=== PATIENT | female | born 1955 | race Caucasian/White ===

== ENCOUNTER 2023-10-15 06:24 | Day surgery (SDC) | payer MEDICARE, SELFPAY ==
[2023-10-11 09:18] VITALS: BMI 32.8
[2023-10-11 09:33] VITALS: BMI 32.8
--- NOTE | 2023-10-14 09:17 | P.CONAN_ITS ---
Documented by User: Dai Sams NP 10/14/23 09:18 HPI - Anesthesia Eval Consult details Narrative: 68yo F for Colonoscopy PMFSH Past Medical History Medical History Diverticulosis Osteoarthritis Hereditary spherocytosis Renal calculi HTN (hypertension) Surgical History Surgical History Hx of hysterectomy Hx of cholecystectomy Hx of splenectomy H/O colonoscopy Social History Social History (Updated 10/11/23 @ 09:18 by Josefa Flood RN) Are you a primary healthcare applications analyst to a significant other at home: No Do you presently have visiting nurse or other home services: No Patient Tobacco Use Status: Never used Tobacco Use of substances other than those prescribed or required for medical reasons: No Have you been hit, kicked, punched, or otherwise hurt by someone within the past year? If so, by whom?: No Are you DNR?: No Advance Directives: No Advance Directives Information Provided: Yes Advance Directives on File: No Eating poorly because of decreased appetite: No Nutrition Risks: No Nutritional Risk Poor oral hygiene: No Meds Allergies Allergy/AdvReac Type Severity Reaction Status Date / Time shellfish derived Allergy Hives Verified 10/15/23 07:19 Home Medications Medication Instructions Recorded Confirmed Last Taken Type Lactobacillus acidophilus and 1 cap PO DAILY 10/11/23 10/11/23 Unknown History rhamnosus 15 billion cell capsule (Probiotic) amlodipine 10 mg tablet 10 mg PO DAILY 10/11/23 10/11/23 10/15/23 History fluticasone propionate 50 1 spray intranasal DAILY PRN Nasal 10/11/23 10/11/23 Unknown History mcg/actuation nasal Congestion spray,suspension lisinopril 30 mg tablet 30 mg PO DAILY 10/11/23 10/11/23 Unknown History meloxicam 15 mg tablet 15 mg PO DAILY PRN Pain 10/11/23 10/11/23 Unknown History Exam Height,Weight and Vital Signs: Height 5 ft 4 in Weight 86.636 kg Assessment and Plan Assessment Anesthesia Assessment: Chart Reviewed Documented by User: Patrick Rod MD 10/15/23 07:21 PMFSH Past Medical History Medical History Diverticulosis Osteoarthritis Hereditary spherocytosis Renal calculi HTN (hypertension) Family History Family history of problems with anesthesia: No Surgical History Surgical History Hx of hysterectomy Hx of cholecystectomy Hx of splenectomy H/O colonoscopy History of Problems with Anesthesia: No Social History Social History (Updated 10/11/23 @ 09:18 by Josefa Flood RN) Are you a primary healthcare applications analyst to a significant other at home: No Do you presently have visiting nurse or other home services: No Patient Tobacco Use Status: Never used Tobacco Use of substances other than those prescribed or required for medical reasons: No Have you been hit, kicked, punched, or otherwise hurt by someone within the past year? If so, by whom?: No Are you DNR?: No Advance Directives: No Advance Directives Information Provided: Yes Advance Directives on File: No Eating poorly because of decreased appetite: No Nutrition Risks: No Nutritional Risk Poor oral hygiene: No Meds Allergies Allergy/AdvReac Type Severity Reaction Status Date / Time shellfish derived Allergy Hives Verified 10/15/23 07:19 Home Medications Medication Instructions Recorded Confirmed Last Taken Type Lactobacillus acidophilus and 1 cap PO DAILY 10/11/23 10/11/23 Unknown History rhamnosus 15 billion cell capsule (Probiotic) amlodipine 10 mg tablet 10 mg PO DAILY 10/11/23 10/11/23 10/15/23 History fluticasone propionate 50 1 spray intranasal DAILY PRN Nasal 10/11/23 10/11/23 Unknown History mcg/actuation nasal Congestion spray,suspension lisinopril 30 mg tablet 30 mg PO DAILY 10/11/23 10/11/23 Unknown History meloxicam 15 mg tablet 15 mg PO DAILY PRN Pain 10/11/23 10/11/23 Unknown History Exam Airway Mallampati Class: III TM Dist: >3cm Neck ROM: Full Assessment and Plan Assessment Anesthesia Assessment: Anesthesia Plan Discussed Final Anesthetic Review Family History of Problems with Anesthesia: No History of Problems with Anesthesia: No NPO: Yes ASA Class: II Final Preanesthetic Review: No Changes in Pt Med Stat, Meds/Allgs Chart Reviewed, Consent Obtained/Reviewed and Anes Risks/Benef Reviewed Patient Risk: Low Procedure Risk: Low Anesthetic Plan Anesthetic Plan: TIVA Disposition: Standard PACU
[2023-10-15] MEDS: Lactated Ringers 1,000 ML 100 ML IVCONT (06:28)
[2023-10-15 06:40] VITALS: BP 143/84; PULSE 103; RESP 18; TEMP 36.6; O2SAT 96
--- NOTE | 2023-10-15 07:26 | MHC.SHP ---
Pre-Procedural Eval Section A - 24 Hr Update-Section A only Date of Service: 10/15/23 Section B - Complete if H&P > 30 days Chief Complaint: screening Details of Present Illness: see H&P no changes Relevant Family History (Specify if Yes): No Relevant Social History: None Present Medications: see Short Stay Collaborative assessment Medical History: No relevant PMH History of Previous Operations: No relevant previous surgery Allergies: Allergies Allergy/AdvReac Type Severity Reaction Status Date / Time shellfish derived Allergy Hives Verified 10/15/23 07:19 Review of Systems Sugical H&P ROS: Negative: Constitution, Cardiovascular, Respiratory, Neurological, Psychiatric, Hem-Onc, Allergic/Immunologic, Gastrointestinal, Genitourinary, Musculoskeletal, Integumentary, Endocrine and Eyes/Ears/Nose/Throat Exam Surgical H&P Exam: Normal: HEENT, Normal: Heart, Normal: Lungs, Normal: Extremities, Normal: Abdomen, Normal: Skin and Normal: Neurological Plan Diagnosis/Plan: Unchanged I have reviewed the history and physical and performed a pertinent physical examination on my patient. No changes have occurred unless specified. Time Spent With Patient Time: Total time managing care of this patient today ____ minutes.
[2023-10-15 08:15] VITALS: BP 129/71; PULSE 73; RESP 17; TEMP 36.2; O2SAT 95
--- NOTE | 2023-10-15 08:25 | P.BOP_ITS ---
Brief Operative Note Date of Service: 10/15/23 Surgeon: Preston Mcmahan MD Was an Product Mgmt Dev Manager used for this Procedure?: No Estimated blood loss (mL): 0
[2023-10-15 08:30] VITALS: BP 126/67; PULSE 81; RESP 17; TEMP 36.2; O2SAT 97
--- NOTE | 2023-10-15 08:53 | OP_ITS ---
DATE OF SERVICE: 10/15/2023 SURGEON: Preston Mcmahan MD INDICATIONS: Colon cancer screening. PREOPERATIVE DIAGNOSIS: POSTOPERATIVE DIAGNOSIS: PROCEDURE PERFORMED: Colonoscopy to the terminal ileum with biopsy and snare polypectomy. ESTIMATED BLOOD LOSS: COMPLICATIONS: ANESTHESIA: Medications, monitored anesthesia care. ASSISTANTS: SPECIMENS: DESCRIPTION OF PROCEDURE: A history and physical were performed. The risks and benefits of the procedure were explained to the patient. Informed consent was obtained. The patient was placed in the left lateral decubitus position. A digital rectal exam was performed and was found to be normal. The Olympus pediatric video colonoscope was introduced into the rectum and advanced to the cecum. The cecum was identified by transillumination, palpation, and identification of ileocecal valve. Examination was performed. The scope was removed. She tolerated the procedure well and was returned to the recovery area in stable condition. FINDINGS: The terminal ileum was not examined. The visualized colonic mucosa was normal. The quality of the prep was good. There were 2 polyps in the cecum, 1 measured less than 5 mm and was removed with biopsy forceps. The 2nd measured approximately 8 mm and was removed with a hot snare. There was extensive diverticulosis throughout the colon and the rectum was less than 5 mm polyp was removed with a hot snare and recovered via suction. The quality of prep was good. IMPRESSION: Colon polyps. RECOMMENDATIONS: Follow up the biopsy results. MD PAYAL Leal/FREDY / [id number]
== END 2023-10-15 09:04 | disposition home or self-care (01) ==
PROVIDERS: PCP Internal Medicine; Visit Provider Internal Medicine Gastroenterology
PROC: 0DJD8ZZ Inspection of Lower Intestinal Tract, Via Natural or Artificial Opening Endoscopic (ICD-10-PCS; CPT 45378; principal; 2023-10-15 07:30)
DX: Z12.11 Encounter for screening for malignant neoplasm of colon (principal); Z80.0 Family history of malignant neoplasm of digestive organs; D12.0 Benign neoplasm of cecum; D12.8 Benign neoplasm of rectum; K57.30 Diverticulosis of large intestine without perforation or abscess without bleeding; I10 Essential (primary) hypertension; R73.9 Hyperglycemia, unspecified; N20.0 Calculus of kidney; D58.0 Hereditary spherocytosis; Z90.81 Acquired absence of spleen; Z79.1 Long term (current) use of non-steroidal anti-inflammatories (NSAID); Z79.899 Other long term (current) drug therapy; Z90.49 Acquired absence of other specified parts of digestive tract
CPT/HCPCS: 45385; 45380; 88305; J2704

== ENCOUNTER 2025-08-03 09:45 | Outpatient (AMB) | payer MEDICARE, SELFPAY ==
--- NOTE | 2025-08-03 09:56 | A.PHYSOV_ITS ---
Vital Signs 08/03/25 09:57 Height 5 ft 3 in Weight 196 lb BMI 34.7 Intake Visit Reasons: Follow up after injection 06/26/25 Intake Note: Patient is a 70year old female here today for follow up on left L5-S1 SHILA on 06/26/2025 Buggyman Required: No Allergies shellfish derived Allergy (Verified 08/03/25 09:56) Hives HPI Comments Details: Ms. Guerrero is a 70 year old female seen in evaluation today for low back pain with radiculopathy. Patient underwent L5-S1 SHILA on 06/26/2025. She reports 70% reduction of her pain for 3 weeks and then her pain returned. She has a pain level today of 6/10 primarily in the left buttock. Her symptoms are worse with ambulation and do improve with rest. Patient has been using Tylenol and anti- inflammatory medications for pain. She has failed conservative treatment by completing physical therapy. Procedure: L5-S1 SHILA 06/26/2025 pain relief for 3 weeks and then pain increased. [facility] Medical History (Updated 08/03/25 @ 10:22 by ERNESTINA Serrano) Diverticulosis Osteoarthritis Hereditary spherocytosis Renal calculi HTN (hypertension) Surgical History Hx of hysterectomy Hx of cholecystectomy Hx of splenectomy H/O colonoscopy Social History Are you a primary primary care provider to a significant other at home: No Do you presently have visiting nurse or other home services: No Patient Tobacco Use Status: Never used Tobacco Review of Systems Narrative Low back pain with radiculopathy. No incontinence, saddle anesthesia urinary retention. Physical Exam Exam Exam: Lumbar Spine: Examination of her lumbar spine, there is no visible swelling or deformity. She is tender to lower lumbar facets. She is otherwise nontender. Full range of motion of the lumbar spine. She does have an increase in pain with facet loading. Special Tests: Lhermittes sign was negative Heel Toe walk is normal Left straight leg raise: Negative Right straight leg raise: Negative Special tests Michela test is negative Ganslen's test is negative SI Joint compression test negative Gayathri test negative Piriformis stretch is negative Lower Extremities: Full range of motion bilateral lower extremities. No calf pain or edema. Neuro: Sensation: Intact to lower extremities bilaterally Strength L2 (Psoas): 5/5 on the left and 5/5 on the right. L3 (Quads): 5/5 on the left and 5/5 on the right. L4 (Ant tibialis): 5/5 on the left and 5/5 on the right. L5 (EHL) 5/5 on the left and 5/5 on the right. S1 (Gastroc): 5/5 on the left and 5/5 on the right. DTR L4: (Patellar) Left 2 Right 2 S1: (Achilles) Left 2 Right 2 Babinski Downgoing No pathologic clonus. No involuntary movement. Vital Signs: BMI result Body Mass Index 34.7 Assessment & Plan Assessment & Plan (1) Lumbar radiculopathy: Code(s): M54.16 - Radiculopathy, lumbar region Category: Medical (2) Lumbar spondylosis: Code(s): M47.816 - Spondylosis without myelopathy or radiculopathy, lumbar region Category: Medical Plan Yolanda Nassar is a 70 -year-old female seen in evaluation today for lumbar radiculitis to bilateral lower extremities. Patient reports 70% reduction of her pain for 3 weeks and then her pain returned. She finds that her symptoms limit her ability to perform her activities of daily living. Patient would like to monitor her symptoms. She will continue her home exercise plan and medications as prescribed. She may benefit from left L4, right L3 transforaminal injection. She will contact our office if she would like to proceed. We discussed the benefits of proper nutrition and exercise to maintain a healthy body weight to improve longevity and function. We also discussed the benefits of proper lifting techniques, core strengthening and proper posture. Thank you for allowing me to participate in the care of your patient. Coding Level of Care Code Est Pt Level 3 (72857) Diagnoses Lumbar radiculopathy M54.16 Lumbar spondylosis M47.816
[2025-08-03 09:57] VITALS: BMI 34.7
--- OUTSIDE RECORDS SUMMARY | 2025-08-03 11:23 | XMS_ITS | Clinical Summary ---
Author Organization [facility] it Address [address] [place] [address] Care Team Providers Care Victims Advocate Clerk/Specialist Name Role Phone Unavailable Primary Care Provider Unavailabl e Social History Tobacco Use Types Packs/Day Years Used Date Smoking Tobacco: Never Assessed Comments Unknown Sex and Gender Information Value Date Recorded Sex Assigned at Not on file Legal Sex Female 3:39 PM EST Gender Identity Not on file Sexual Orientation Not on file Plan of Treatment Health Maintenance Due Date Last Done Comments Breast Cancer Screening 1955 Colorectal Cancer Screening: Colonoscopy 1955 DTaP,Tdap,and Td Vaccines (1 - Tdap) 1972 Pneumococcal Vaccine: 50+ Ye ars (1 of 1 - PCV) 2003 Zoster Vaccines (1 of 2) 2003 Falls Risk Assessment 10/08/2023 Hepatitis C Screening 10/08/2023 Osteoporosis Screening (Bone Density Screening) 10/08/2023 Social Influencers of Health Screening 10/08/2023 Depression Screening 09/09/2024 COVID-19 Vaccine (1 - 2024-2 6 season) 2025 Influenza Vaccine (#1) 2025 RSV Immunization Adult Patie nts (1 - 1-dose 75+ series) 2028 HIB Vaccines Aged Out No longer eligi ble based on patient's age to complete this topic HPV Vaccines Aged Out No longer eligi ble based on patient's age to complete this topic Hepatitis A Vaccines Aged Out No long er eligible based on patient's age to complete this topic Hepatitis B Vaccines Aged Out No long er eligible based on patient's age to complete this topic IPV Vaccines Aged Out No longer eligi ble based on patient's age to complete this topic MMR Vaccines Aged Out No longer eligi ble based on patient's age to complete this topic Meningococcal ACWY Vaccine Aged Out N o longer eligible based on patient's age to complete this topic Meningococcal B Vaccine Aged Out No l onger eligible based on patient's age to complete this topic RSV Immunization Patients Un rosangela 20 months Aged Out No longer eligible b ased on patient's age to complete this topic Varicella Vaccines Aged Out No longer eligible based on patient's age to complete this topic
== END 2025-08-03 10:27 | disposition home or self-care (01) ==
PROVIDERS: PCP Internal Medicine; Visit Provider Physician Assistant
DX: M54.16 Radiculopathy, lumbar region (principal); M47.816 Spondylosis without myelopathy or radiculopathy, lumbar region
CPT/HCPCS: 99213

== ENCOUNTER → 2025-08-03 09:45 | Outpatient (BNVA) | payer MEDICARE, SELFPAY | PROVIDERS: PCP Internal Medicine; Visit Provider Physician Assistant | DX: M54.16 Radiculopathy, lumbar region (principal); M47.816 Spondylosis without myelopathy or radiculopathy, lumbar region | CPT/HCPCS: 99212 ==